=== PATIENT | female | born 2000 | race Caucasian/White ===

== ENCOUNTER 2022-01-17 10:09 | Emergency (ER) | payer OTHER, SELFPAY ==
[2022-01-17 10:16] VITALS: BP 122/63; PULSE 84; RESP 14; TEMP 36.9; O2SAT 100
--- NOTE | 2022-01-17 11:21 | ED.GENADULT ---
HPI - General Adult General Chief complaint: Upper Respiratory Infection Stated complaint: Sore Throat Source: patient Mode of arrival: ambulatory Limitations: no limitations History of Present Illness HPI narrative: Patient presents for evaluation of sick symptoms for the last 4 days. Symptoms include dry throat, hoarse voice, cough and sore throat. No fever, chills, nausea, vomiting, shortness of breath. No recent sick contacts to her knowledge. She does not smoke. She had COVID at the end of 2020. She is not taking any medications to assist with her symptoms. She took a home COVID test yesterday which was negative. No additional complaints or concerns. Related Data Allergies Allergy/AdvReac Type Severity Reaction Status Date / Time No Known Allergies Allergy Unverified 07/10/18 18:00 Review of Systems Review of Systems: CONSTITUTIONAL: Denies fever, chills, or sweats. EYES: Denies visual changes, redness, or discharge. ENT: Reports dry/sore throat base. Denies rhinorrhea, congestion, or otalgia. CARDIOVASCULAR: Denies chest pain, palpitations, or edema. RESPIRATORY: Reports cough. Denies dyspnea. GASTROINTESTINAL: Denies abdominal pain, nausea, vomiting, or diarrhea. GENITOURINARY: Denies dysuria or hematuria. SKIN: Denies rash or itching. MUSCULOSKELETAL: Denies back pain, joint pain, or myalgia. NEUROLOGIC: Denies headache, numbness, dizziness, or weakness. PSYCHIATRIC: Denies anxiety or depression. Exam Narrative: GENERAL: Well-appearing, well-nourished, and in no acute distress. HEAD: Normocephalic, atraumatic. EYES: PERRLA and EOMI. ENT: Nares clear, no rhinorrhea or epistaxis. Mucous membranes moist. Oropharynx without tonsillar hypertrophy exudate or other lesions. There is posterior pharyngeal erythema. Bilateral TMs pearly dunlap nonbulging NECK: Supple. No adenopathy or masses. No carotid bruits or JVD CHEST: Clear to auscultation. No respiratory distress. No wheezes rales or rhonchi HEART: Regular rate and rhythm. No murmur heard. Normal peripheral pulses. ABDOMEN: Soft, nontender, nondistended, normal active bowel sounds. EXTREMITIES: Normal range of motion. No edema. SKIN: Warm, dry, no rash. NEURO: No focal deficits. Alert and oriented x3. PSYCH: Normal mood and affect. Course Course Emergency Course: This is a 21-year-old female who presented for evaluation of sick symptoms. Strep was negative. I did offer to check influenza and COVID testing. She declined. Exam is consistent with acute viral syndrome. DC with Mucinex DM and Cepacol. Increase hydration. Follow-up outpatient for further evaluation and treatment and go to the ER for worsening symptoms. Patient in agreement with plan of care. Level of Care: Express Care Visit Vital Signs Vital signs: Vital Signs Temperature 36.9 C 01/17/22 10:16 Pulse Rate 84 01/17/22 10:16 Respiratory Rate 14 01/17/22 10:16 Blood Pressure 122/63 01/17/22 10:16 Pulse Oximetry 100 01/17/22 10:16 Oxygen Delivery Room Air 01/17/22 10:16 Temperature 36.9 C 01/17/22 10:16 Pulse Rate 84 01/17/22 10:16 Respiratory Rate 14 01/17/22 10:16 Blood Pressure 122/63 01/17/22 10:16 Pulse Oximetry 100 01/17/22 10:16 Oxygen Delivery Room Air 01/17/22 10:16 Medical Decision Making Vital Signs Vital Signs: Vital Signs Temperature 36.9 C 01/17/22 10:16 Pulse Rate 84 01/17/22 10:16 Respiratory Rate 14 01/17/22 10:16 Blood Pressure 122/63 01/17/22 10:16 Pulse Oximetry 100 01/17/22 10:16 Oxygen Delivery Room Air 01/17/22 10:16 Temperature 36.9 C 01/17/22 10:16 Pulse Rate 84 01/17/22 10:16 Respiratory Rate 14 01/17/22 10:16 Blood Pressure 122/63 01/17/22 10:16 Pulse Oximetry 100 01/17/22 10:16 Oxygen Delivery Room Air 01/17/22 10:16 Lab Data Labs: Strep Screen Presumptive Negative *(Reference Range: Negative)*
== END 2022-01-17 11:34 | disposition home or self-care (01) ==
PROVIDERS: Emergency Provider Nurse Practitioner
DX: B34.9 Viral infection, unspecified (principal)
CPT/HCPCS: 87081; 87880; 99203; G0463

== ENCOUNTER 2022-03-24 17:06 | Emergency (ER) | payer OTHER, SELFPAY ==
--- NOTE | 2022-03-24 17:16 | ED.URI ---
HPI - URI/Sore Throat General Chief Complaint: Upper Respiratory Infection Stated Complaint: Cough/Fever/Vomiting Time Seen by Provider: 03/24/22 17:32 Source: patient and RN notes reviewed Mode of arrival: ambulatory Limitations: no limitations History of Present Illness HPI Narrative: 21-year-old female presents with concern for vomiting, chills, cough, fever, headache. Reports symptoms started yesterday. Reports check DayQuil which helped her symptoms, she fell worsen they wore off. She denies known sick contacts MD elicited complaint: cough and sore throat Related Data Home Medications Medication Instructions Recorded Confirmed norgestimate 0.25 mg-ethinyl 1 tablet DAILY 03/24/22 03/24/22 estradiol 35 mcg tablet (Janessa) Allergies Allergy/AdvReac Type Severity Reaction Status Date / Time No Known Allergies Allergy Verified 03/24/22 17:22 Review of Systems Review of Systems: CONSTITUTIONAL: Reports malaise, chills, sweats, or fever. EYES: Denies visual changes, redness, or discharge. ENT: Reports rhinorrhea, congestion, and sore throat. CARDIOVASCULAR: Denies chest pain, palpitations, or edema. RESPIRATORY: Reports cough. Denies dyspnea. GASTROINTESTINAL: Denies abdominal pain, diarrhea. Reports nausea, vomiting, SKIN: Denies rash or itching. MUSCULOSKELETAL: Reports myalgia. NEUROLOGIC: Denies headache. All systems reviewed & are unremarkable except as noted in HPI and below PMFSH Comments At time of signature, agree with nursing past medical, surgical, social and family history. There is no relevant family history pertinent to the presenting complaint Exam Narrative: GENERAL: non-toxic appearing and in no acute distress. HEAD: Normocephalic EYES: PERRLA, conjunctivae clear ENT: Nares clear, turbinates edematous and erythematous, clear discharge. Mucous membranes moist. TM pearly dunlap with dull light reflex bilaterally; no tragal tenderness. Oropharynx not erythematous without lesions. Tonsils not enlarged and without exudate, no drooling, no hoarseness, no trismus, uvula midline. NECK: Supple. No lymphadenopathy CHEST: Clear to auscultation, breath sounds equal. No wheezing, rhonchi, rales, or stridor. No respiratory distress, speaks in full sentences. HEART: Regular rate and rhythm. No murmur heard. SKIN: Warm, dry, no rash. NEURO: Alert and oriented x3. PSYCH: Normal mood and affect Course Course Emergency Course: Patient is aware of diagnosis, understands and agrees to treatment plan. Anticipatory guidance given. Patient agrees to follow-up as directed and is aware of reasons to seek care at the emergency department. Portions of this record may have been created with voice recognition software Level of Care: Express Care Visit Vital Signs Vital signs: Reviewed. MDM - URI/Sore Throat MDM Narrative Medical decision making narrative: Differential diagnosis considered: Gutierrez virus, strep pharyngitis, allergic rhinitis, upper respiratory tract infection, sinusitis, rhinosinusitis, nasopharyngitis. viral pharyngitis, otitis media, otitis externa, pneumonia, bronchitis, viral cough syndrome, viral syndrome, and influenza. Exam findings show no acute concerns or changes; patient is non-toxic appearing and is in no distress. Patient is appropriate for outpatient treatment and follow-up. Lab Data Attestation: I reviewed the patient's lab results. Critical Care Time Critical Care Time Critical Care Time: No Discharge Plan Discharge Clinical Impression: Influenza-like illness Patient Disposition: Home, Self-Care Condition: Stable Instructions: Viral Syndrome (ED) Additional Instructions: Your rapid COVID test is negative, you likely have an influenza-like virus -Take strict precautions to prevent the spread of your virus. Be diligent about covering your cough (even when you are alone) and washing your hands frequently. -You may contagious until you have been symptom and/or fever fr
[2022-03-24 17:18] VITALS: BP 121/78; PULSE 114; RESP 20; TEMP 37.6; O2SAT 98
[2022-03-24 17:20] VITALS: TEMP 38.4
== END 2022-03-24 17:54 | disposition home or self-care (01) ==
PROVIDERS: Emergency Provider Nurse Practitioner
DX: R05.9 Cough, unspecified (principal); R11.10 Vomiting, unspecified; R51.9 Headache, unspecified
CPT/HCPCS: 99211; G0463

== ENCOUNTER 2022-05-10 10:16 | Emergency (ER) | payer OTHER, SELFPAY ==
[2022-05-10 10:20] VITALS: BP 108/46; PULSE 106; RESP 18; TEMP 37.5; O2SAT 99
--- NOTE | 2022-05-10 11:18 | ED.GENADULT ---
HPI - General Adult General Chief complaint: Upper Respiratory Infection Stated complaint: Sore Throat Source: patient Mode of arrival: ambulatory Limitations: no limitations History of Present Illness HPI narrative: Patient presents for evaluation of sore throat and headache for the last 2 days. She denies any fever, chills, nausea, vomiting, otalgia, cough, shortness of breath. Her boyfriend has laryngitis but does not have a sore throat. She has been taking ibuprofen for her symptoms. She was unsure which other medications may be helpful. She does not smoke. No additional complaints or concerns. Related Data Home Medications Medication Instructions Recorded Confirmed norgestimate 0.25 mg-ethinyl 1 tablet DAILY 03/24/22 05/10/22 estradiol 35 mcg tablet (Janessa) Allergies Allergy/AdvReac Type Severity Reaction Status Date / Time No Known Allergies Allergy Verified 05/10/22 10:36 Review of Systems Review of Systems: CONSTITUTIONAL: Denies fever, chills, or sweats. EYES: Denies visual changes, redness, or discharge. ENT: Reports sore throat. Denies rhinorrhea, congestion, or otalgia. CARDIOVASCULAR: Denies chest pain, palpitations, or edema. RESPIRATORY: Denies cough or dyspnea. GASTROINTESTINAL: Denies abdominal pain, nausea, vomiting, or diarrhea. GENITOURINARY: Denies dysuria or hematuria. SKIN: Denies rash or itching. MUSCULOSKELETAL: Denies back pain, joint pain, or myalgia. NEUROLOGIC: Reports headache. Denies numbness, dizziness, or weakness. PSYCHIATRIC: Denies anxiety or depression. [facility] Past Medical History Medical History No pertinent past medical history Surgical History Surgical History History of wisdom tooth extraction Hx of LASIK Family History Family History Mother Family history non-contributory Social History Social History Smoking status: Never smoker Substance use: never Additional living arrangements comments: Lives with boyfriend Gender identity (if verbalized by the patient): Female Sexual Orientation (if Verbalized by the Patient): Straight or Heterosexual Spiritual care concerns: No Exam Narrative: GENERAL: Well-appearing, well-nourished, and in no acute distress. HEAD: Normocephalic, atraumatic. EYES: PERRLA and EOMI. ENT: Nares clear, no rhinorrhea or epistaxis. Mucous membranes moist. Bilateral tonsillar enlargement and erythema. No exudate. Uvula is midline. Bilateral TMs pearly dunlap nonbulging NECK: Supple. No adenopathy or masses. No carotid bruits or JVD CHEST: Clear to auscultation. No respiratory distress. No wheezes rales or rhonchi HEART: Regular rate and rhythm. No murmur heard. Normal peripheral pulses. ABDOMEN: Soft, nontender, nondistended, normal active bowel sounds. EXTREMITIES: Normal range of motion. No edema. SKIN: Warm, dry, no rash. NEURO: No focal deficits. Alert and oriented x3. PSYCH: Normal mood and affect. Course Course Emergency Course: This is a 21-year-old female who presented for evaluation of sore throat headache. Rapid strep was negative. Discussed waiting for throat culture vs treating today. I have high clinical suspicion for strep. Will tx with amoxicillin. Follow up outpatient for further evaluation and treatment. Go to ER for difficulty breathing or swallowing. Pt in agreeement with plan of care. Level of Care: Express Care Visit Vital Signs Vital signs: Vital Signs Temperature 37.5 C 05/10/22 10:20 Pulse Rate 106 H 05/10/22 10:20 Respiratory Rate 18 05/10/22 10:20 Blood Pressure 108/46 L 05/10/22 10:20 Pulse Oximetry 99 05/10/22 10:20 Oxygen Delivery Room Air 05/10/22 10:20 Temperature 37.5 C 05/10/22 10:20 Pulse Rate 106 H
== END 2022-05-10 11:20 | disposition home or self-care (01) ==
PROVIDERS: Emergency Provider Nurse Practitioner; PCP Emergency Medicine
DX: J02.9 Acute pharyngitis, unspecified (principal)
CPT/HCPCS: 87081; 87880; 99213; G0463